=== PATIENT | female | born 1995 | race African-American/Black ===

== ENCOUNTER 2019-04-21 08:26 | Emergency (ER) | payer SELFPAY ==
[2019-04-21 10:20] LABS: ABSOLUTE LYMPHOCYTES (AUTO) 1.2 10^3/uL (0.5-4.7); ABSOLUTE MONOCYTES (AUTO) 0.4 10^3/uL (0.1-1.4); ABSOLUTE NEUT (AUTO) 5.6 10^3/uL (1.7-8.2); BASOPHILS % (AUTO) 0.6 % (0-2); EOSINOPHILS % (AUTO) 0.3 % (0-6); HEMATOCRIT 37.6 % (36.0-47.0); HEMOGLOBIN 12.8 g/dL (12.0-15.5); LYMPHOCYTES % (AUTO) 16.9 % (13-45); MEAN CORPUSCULAR HEMOGLOBIN 29.9 pg (27.0-33.4); MEAN CORPUSCULAR HGB CONC 34.1 g/dL (32.0-36.0); MEAN CORPUSCULAR VOLUME 88 fl (80-97); MONOCYTES % (AUTO) 5.2 % (3-13); PLATELET COUNT 234 10^3/uL (150-450); RED CELL DISTRIBUTION WIDTH 15.2 % (11.5-14.0); TOTAL CELLS COUNTED % (AUTO) 100 %; WHITE BLOOD COUNT 7.3 10^3/uL (4.0-10.5)
[2019-04-21 10:26] LABS: APPEARANCE,URINE CLEAR; BILIRUBIN,URINE NEGATIVE (NEGATIVE); COLOR,URINE YELLOW; GLUCOSE, URINE NEGATIVE (NEGATIVE); KETONES,URINE NEGATIVE (NEGATIVE); LEUKOCYTE ESTERASE,URINE NEGATIVE (NEGATIVE); NITRITE,URINE NEGATIVE (NEGATIVE); PROTEIN,URINE NEGATIVE (NEGATIVE); UROBILINOGEN,URINE NEGATIVE mg/dL (<2.0)
[2019-04-21 10:44] LABS: ALBUMIN 4.5 g/dL (3.5-5.0); ALKALINE PHOSPHATASE 47 U/L (38-126); ANION GAP 9 (5-19); ASPARTATE AMINO TRANSFERASE 42 U/L (14-36); BILIRUBIN,DIRECT 0.1 mg/dL (0.0-0.4); BILIRUBIN,TOTAL 0.8 mg/dL (0.2-1.3); BLOOD UREA NITROGEN 9 mg/dL (7-20); CALCIUM 10.1 mg/dL (8.4-10.2); CARBON DIOXIDE 27 mmol/L (22-30); CHLORIDE 104 mmol/L (98-107); GLUCOSE 81 mg/dL (75-110); POTASSIUM 3.8 mmol/L (3.6-5.0); TOTAL PROTEIN 8.1 g/dL (6.3-8.2)
[2019-04-21] MEDS ORDERED: KETOROLAC TROMETHAMINE 60 MG/2 ML SDV IM ONE (11:34)
--- NOTE | 2019-04-21 11:35 | ER Document Report ---
ED General - General Chief Complaint: Abdominal Pain Stated Complaint: LOW ABDOMINAL PAIN Time Seen by Provider: 04/21/19 10:40 TRAVEL OUTSIDE OF THE [place] IN LAST 30 DAYS: No - HPI Notes: Patient is a 23-year-old female who presents emergency department for evaluation of pelvic pain. About 6 AM this morning she was pumping gas. She had a sudden onset sharp pelvic pain. It radiated up into the rest of her abdomen. She states this been a pressure type sensation, generally eased, but still significa nt, since then. She denies any associated fevers or chills. No nausea or vomiting. Normal bowel movements. No urinary symptoms. Eating and drinking normally. No vaginal bleeding or discharge, no genital lesions.. She states her last menstrual period was on April 09. - Related Data Allergies/Adverse Reactions: No Known Allergies Allergy (Unverified 04/21/19 09:33) Home Medications: None Past Medical History - General Information source: Patient - Social History Smoking Status: Current Some Day Smoker Frequency of alcohol use: Occasional Family History: Reviewed & Not Pertinent Patient has suicidal ideation: No Patient has homicidal ideation: No - Medical History Medical History: Negative Review of Systems - Review of Systems Constitutional: No symptoms reported EENT: No symptoms reported Cardiovascular: No symptoms reported Respiratory: No symptoms reported Gastrointestinal: No symptoms reported Genitourinary: No symptoms reported Female Genitourinary: See HPI Musculoskeletal: No symptoms reported Skin: No symptoms reported Neurological/Psychological: No symptoms reported Physical Exam - Vital signs Vitals: Temp Pulse Resp BP Pulse Ox 98.4 F 90 16 104/68 100 04/21/19 08:30 04/21/19 08:30 04/21/19 08:30 04/21/19 08:30 04/21/19 08:30 - Notes Notes: Vital signs reviewed, please refer to chart. Head is normocephalic, atraumatic. Pupils equal round, reactive to light. Neck is supple without meningismus. Heart is regular rate and rhythm. Lungs are clear to auscultation bilaterally. Abdomen is soft, moderately tender in the left pelvis without rebound or guarding, normoactive bowel sounds throughout. Extremities without cyanosis, clubbing. Posterior calves are nontender. Peripheral pulses are equal. Skin is warm and dry. Patient is awake, alert, neurological exam is nonfocal. Course - Re-evaluation Re-evalutation: 04/21/19 11:34 Patient presents to the emergency department for evaluation of pelvic pain. She really does not have any associated symptoms. She remains tender, despite the fact that her symptoms been present for over 5 hours. I am concerned about a possible ovarian pathology, certainly torsion would be on the differential. Laboratory investigations are unremarkable, including negative test. Ultrasound is ordered, we will continue to monitor. 04/21/19 13:24 Patient feeling moderately improved. Likely ruptured ovarian cyst seen on ultrasound. We will have her follow-up with primary care/OB. She is to return to the ED with worsening. - Vital Signs Vital signs: Temp Pulse Resp BP Pulse Ox 98.0 F 80 15 100/62 97 04/21/19 13:54 04/21/19 13:54 04/21/19 13:54 04/21/19 13:54 04/21/19 13:54 - Laboratory Result Diagrams: 04/21/19 10:05 04/21/19 10:05 Laboratory results interpreted by me: 04/21/19 04/21/19 10:05 10:05 RDW 15.2 H AST 42 H Discharge - Discharge Clinical Impression: Rupture of cyst of right ovary Condition: Stable Disposition: HOME, SELF-CARE Instructions: Ovarian Cyst ([facility]) Additional Instructions: Findings on your ultrasound are most consistent with an ovarian cyst that is ruptured. Ibuprofen as needed for pain. Follow-up with primary care this week. Return to the ED with worsening or new concerning symptoms of any sort.
--- NOTE | 2019-04-21 12:29 | RADIOLOGY REPORT (SQ) ---
EXAM DESCRIPTION: U/S NON OB PEL TV W/DOPPLER COMPLETED DATE/TIME: 04/21/2019 12:19 pm REASON FOR STUDY: pelvic pain, eval for torsion COMPARISON: None. TECHNIQUE: Dynamic and static grayscale images acquired of the pelvis via transvaginal approach and recorded on PACS. Additional selected color Doppler and spectral images recorded. LIMITATIONS: None. FINDINGS: UTERUS: Contour normal. No mass. ENDOMETRIAL STRIPE: No focal or generalized thickening. No masses. CERVIX: No nabothian cysts. RIGHT OVARY AND DOPPLER: Normal size. No worrisome masses. Normal arterial vascular flow without evid ence for torsion. There is a small irregular cyst which may represent a ruptured ovarian cyst. LEFT OVARY AND DOPPLER: Normal size. No worrisome masses. Normal arterial vascular flow without evide nce for torsion. FREE FLUID: There is free fluid in the left adnexa. OTHER: No other significant finding. MEASUREMENTS: UTERUS: 6.6 x 4.2 x 3.5 cm. ENDOMETRIAL STRIPE: 8.5 mm. RIGHT OVARY: 3.7 x 2.3 x 1.8 cm. LEFT OVARY: 2.9 x 2.1 x 1.6 cm. IMPRESSION: Small irregular cyst on the right ovary possibly ruptured ovarian cyst. Free fluid in t he left adnexae. No other significant findings. TECHNICAL DOCUMENTATION: JOB ID: [id number]- All Rights Reserved Rev-08/24 Reading location - IP/workstation name: [email or web address]
[2019-04-21 13:56] VITALS: BP 100/62
== END 2019-04-21 14:07 | disposition home or self-care (01) ==
LOC: ER 08:26
DX: N83.201 Unspecified ovarian cyst, right side (principal); R10.2 Pelvic and perineal pain; R10.9 Unspecified abdominal pain; R10.30 Lower abdominal pain, unspecified; F17.200 Nicotine dependence, unspecified, uncomplicated
CPT/HCPCS: 99284; 96372; 36415; 83690; 85025; 81025; 80053; 81001; 76830; 93976; J1885